=== PATIENT | female | born 1980 | race Caucasian/White ===

== ENCOUNTER 2017-11-15 16:15 | Emergency (ER) | payer BC ==
[2017-11-15 16:57] LABS: ABS Basophils 0.1 10^3/ul (0-0.2); ABS Eosinophils 0.2 10^3/ul (0-0.6); ABS Lymphocytes 2.5 10^3/ul (1.0-4.8); ABS Monocytes 0.4 10^3/ul (0-0.8); ABS Neutrophils 3.4 10^3/ul (1.5-7.7); ABS Nucleated RBC 0 10^3/ul; Eosinophil % 2.5 % (0-6); Hematocrit 38 % (35-47); Hemoglobin 12.7 g/dl (12.0-16.0); Lymphocyte % 38.6 % (25-47); Mean Corpuscular HGB Conc 34 g/dl (31-36); Mean Corpuscular Hemoglobin 32 pg (27-31); Mean Corpuscular Volume 94 fL (80-97); Mean Platelet Volume 7.8 um3 (7.4-10.4); Nucleated Red Blood Cells % 0.1; Platelet Count 218 10^3/ul (150-450); Red Blood Count 4.01 10^6/ul (4.00-5.40); Red Cell Distribution Width 13 % (10.5-15); White Blood Count 6.4 10^3/ul (3.5-10.8)
[2017-11-15 17:22] LABS: EGFR Non-African American 84.7 (>60)
--- NOTE | 2017-11-15 18:08 | RAD ---
INDICATION: Chest pain. COMPARISON: Comparison is made with a prior chest x-ray study from November 15, 2008. TECHNIQUE: A portable view of the chest was obtained. FINDINGS: Cardiac and mediastinal contours appear to be within normal limits. The lungs are clear. No pleural effusion is seen. IMPRESSION: NO EVIDENCE FOR ACUTE DISEASE.
[2017-11-15] MEDS ORDERED: Aspirin TAB* 325 MG PO ONE (18:13)
[2017-11-15] MEDS ORDERED: Aspirin 81 mg CHEW TAB* 81 MG TAB.CHEW ONE (18:21)
--- NOTE | 2017-11-15 21:03 | ED ---
HPI Chest Pain - HPI Summary HPI Summary: Patient complains of left jaw pain, left neck and shoulder pain, numbness and tingling in left arm 1 week, with some intermittent left chest discomfort starting today. Patient states she had fillings placed in left side of her jaw 2 weeks ago with some residual left jaw pain. CP described as fluttery, intermittent, lasting a few minutes at a time, random onset, no history of same. Denies fever, SOB, trauma, cough, sore throat, N/V/D, abdominal pain, change in urine or BM. Medical history is none. Denies OCP, estrogen supplements, history of blood clots, recent surgery or trauma, family history of blood clots, history of cancer, unilateral leg pain, cardiac history. Family cardiac history unknown. Medical history is none. Nonsmoker, denies use of illegal stimulants, overuse of caffeine or energy drinks. - History of Current Complaint Chief Complaint: EDNeurologicalDeficit Time Seen by Provider: 11/15/17 17:32 Hx Obtained From: Patient Hx Last Menstrual Period: 01/18/14 Onset/Duration: Started Days Ago Timing: Intermittent Initial Severity: Moderate Current Severity: Moderate Pain Intensity: 6 Pain Scale Used: 0-10 Numeric Chest Pain Location: Discrete at:, Left Anterior Character: Fluttering Aggravating Factor(s): Nothing Alleviating Factor(s): Nothing Associated Signs and Symptoms: Positive: Chest Pain, Numbness, Tingling - Risk Factors Pulmonary Embolism Risk Factors: Negative - Allergy/Home Medications Allergies/Adverse Reactions: Allergies Allergy/AdvReac Type Severity Reaction Status Date / Time Sulfa (Sulfonamide Allergy Rash Verified 11/15/17 16:23 Antibiotics) PMH/Surg Hx/FS Hx/Imm Hx Endocrine/Hematology History: Denies: Hx Anticoagulant Therapy, Hx Diabetes, Hx Thyroid Disease Cardiovascular History: Denies: Hx Hypertension Respiratory History: Denies: Hx Asthma, Hx Chronic Obstructive Pulmonary Disease (COPD) GI History: Denies: Hx Ulcer History: Denies: Hx Dialysis Neurological History: Denies: Hx CVA - Surgical History Surgery Procedure, Year, and Place: wisdom teeth extraction Infectious Disease History: No Infectious Disease History: Denies: Hx Hepatitis, Hx Human Immunodeficiency Virus (HIV), Traveled Outside the [place] in Last 30 Days - Social History Alcohol Use: Occasionally Substance Use Type: Reports: Marijuana Smoking Status (MU): Never Smoked Tobacco Review of Systems Constitutional: Negative Eyes: Negative ENT: Negative Positive: Chest Pain Respiratory: Negative Gastrointestinal: Negative Genitourinary: Negative Musculoskeletal: Other Skin: Negative Neurological: Negative Psychological: Normal All Other Systems Reviewed And Are Negative: Yes Physical Exam - Summary Physical Exam Summary: Chest nontender to palpation. Neuro exam normal, chrome cleaner strength equal bilaterally. Patient able to adduct and abduct left arm and shoulder. No erythema or warmth to left upper extremity/. No erythema to left mastoid. Full range of motion of jaw. Full range of motion of neck. Tenderness to palpation along paraspinal muscles of C-spine and left trapezius. No tenderness with palpation of left shoulder or left arm. No pedal edema, unilateral leg pain or swelling Triage Information Reviewed: Yes Vital Signs On Initial Exam: Initial Vitals Temp Pulse Resp BP Pulse Ox 98.8 F 111 17 124/81 100 11/15/17 16:19 11/15/17 16:19 11/15/17 16:19 11/15/17 16:19 11/15/17 16:19 Vital Signs Reviewed: Yes Appearance: Positive: Well-Appearing Skin: Positive: Warm Head/Face: Positive: Normal Head/Face Inspection Eyes: Positive: Normal ENT: Positive: Normal ENT inspection Neck: Positive: Supple Respiratory/Lung Sounds: Positive: Clear to Auscultation Cardiovascular: Positive: Normal Abdomen Description: Positive: Nontender Musculoskeletal: Positive: Normal Neurological: Positive: Normal Psychiatric: Positive: Normal AVPU Assessment: Alert - [place] Coma Scale Best Eye Response: 4 - Spontaneous Best Motor Response: 6 - Obeys Commands Best Verbal Response: 5 - Oriented Coma Scale Total: 15 Diagnostics - Vital Signs Vital Signs Temp Pulse Resp BP Pulse Ox 11/15/17 20:05 80 16 106/78 100 11/15/17 20:00 75 34 99 11/15/17 19:35 74 16 108/76 99 11/15/17 19:05 78 19 114/79 99 11/15/17 19:00 73 25 100 11/15/17 18:35 77 22 119/84 99 11/15/17 18:05 74 19 112/81 98 11/15/17 18:00 19 11/15/17 17:35 76 12 110/92 100 11/15/17 16:19 98.8 F 111 17 124/81 100 - Laboratory Lab Results: Lab Results 11/15/17 11/15/17 11/15/17 Range/Units 16:47 16:47 16:49 WBC 6.4 (3.5-10.8) 10^3/ul RBC 4.01 (4.00-5.40) 10^6/ul Hgb 12.7 (12.0-16.0) g/dl Hct 38 (35-47) % MCV 94 (80-97) fL MCH 32 H (27-31) pg MCHC 34 (31-36) g/dl RDW 13 (10.5-15) % Plt Count 218 (150-450) 10^3/ul MPV 7.8 (7.4-10.4) um3 Neut % (Auto) 52.2 (38-83) % Lymph % (Auto) 38.6 (25-47) % [place] % (Auto) 5.9 (0-7) % Eos % (Auto) 2.5 (0-6) % Baso % (Auto) 0.8 (0-2) % Absolute Neuts (auto) 3.4 (1.5-7.7) 10^3/ul Absolute Lymphs (auto) 2.5 (1.0-4.8) 10^3/ul Absolute Monos (auto) 0.4 (0-0.8) 10^3/ul Absolute Eos (auto) 0.2 (0-0.6) 10^3/ul Absolute Basos (auto) 0.1 (0-0.2) 10^3/ul Absolute Nucleated RBC 0 10^3/ul Nucleated RBC % 0.1 D-Dimer, Quantitative (Less Than 230) ng/mL Sodium 140 (135-145) mmol/L Potassium 3.6 (3.5-5.0) mmol/L Chloride 107 (101-111) mmol/L Carbon Dioxide 28 (22-32) mmol/L Anion Gap 5 (2-11) mmol/L BUN 12 (6-24) mg/dL Creatinine 0.76 (0.51-0.95) mg/dL Est GFR ( Amer) 102.5 (>60) Est GFR (Non-Af Amer) 84.7 (>60) BUN/Creatinine Ratio 15.8 (8-20) Glucose 148 H (70-100) mg/dL Lactic Acid 0.7 (0.5-2.0) mmol/L Calcium 8.9 (8.6-10.3) mg/dL Total Bilirubin 0.30 (0.2-1.0) mg/dL AST 15 (13-39) U/L ALT 15 (7-52) U/L Alkaline Phosphatase 46 (34-104) U/L Troponin I 0.00 (<0.04) ng/mL C-Reactive Protein < 1.00 (<8.01) mg/L Total Protein 6.6 (6.4-8.9) g/dL Albumin 4.2 (3.2-5.2) g/dL Globulin 2.4 (2-4) g/dL Albumin/Globulin Ratio 1.8 (1-3) 11/15/17 11/15/17 Range/Units 16:49 20:20 WBC (3.5-10.8) 10^3/ul RBC (4.00-5.40) 10^6/ul Hgb (12.0-16.0) g/dl Hct (35-47) % MCV (80-97) fL MCH (27-31) pg MCHC (31-36) g/dl RDW (10.5-15) % Plt Count (150-450) 10^3/ul MPV (7.4-10.4) um3 Neut % (Auto) (38-83) % Lymph % (Auto) (25-47) % [place] % (Auto) (0-7) % Eos % (Auto) (0-6) % Baso % (Auto) (0-2) % Absolute Neuts (auto) (1.5-7.7) 10^3/ul Absolute Lymphs (auto) (1.0-4.8) 10^3/ul Absolute Monos (auto) (0-0.8) 10^3/ul Absolute Eos (auto) (0-0.6) 10^3/ul Absolute Basos (auto) (0-0.2) 10^3/ul Absolute Nucleated RBC 10^3/ul Nucleated RBC % D-Dimer, Quantitative < 200 (Less Than 230) ng/mL Sodium (135-145) mmol/L Potassium (3.5-5.0) mmol/L Chloride (101-111) mmol/L Carbon Dioxide (22-32) mmol/L Anion Gap (2-11) mmol/L BUN (6-24) mg/dL Creatinine (0.51-0.95) mg/dL Est GFR ( Amer) (>60) Est GFR (Non-Af Amer) (>60) BUN/Creatinine Ratio (8-20) Glucose (70-100) mg/dL Lactic Acid (0.5-2.0) mmol/L Calcium (8.6-10.3) mg/dL Total Bilirubin (0.2-1.0) mg/dL AST (13-39) U/L ALT (7-52) U/L Alkaline Phosphatase (34-104) U/L Troponin I 0.00 (<0.04) ng/mL C-Reactive Protein (<8.01) mg/L Total Protein (6.4-8.9) g/dL Albumin (3.2-5.2) g/dL Globulin (2-4) g/dL Albumin/Globulin Ratio (1-3) Result Diagrams: 11/15/17 16:47 11/15/17 16:47 Lab Statement: Any lab studies that have been ordered have been reviewed, and results considered in the medical decision making process. - Radiology cxr Xray Interpretation: No Acute Changes Radiology Interpretation Completed By: Radiologist - EKG 1 Cardiac Rate: NL EKG Rhythm: Sinus Rhythm ST Segment: Non-Specific Ectopy: None Chest Pain Course/Dx - Course Course Of Treatment: Patient complains of left jaw pain, left neck and shoulder pain, numbness and tingling in left arm 1 week, with some intermittent left chest discomfort starting today. Patient states she had fillings placed in left side of her jaw 2 weeks ago with some residual left jaw pain. CP described as fluttery, intermittent, lasting a few minutes at a time, random onset, no history of same. Denies fever, SOB, trauma, cough, sore throat, N/V/D, abdominal pain, change in urine or BM. Medical history is none. Denies OCP, estrogen supplements, history of blood clots, recent surgery or trauma, family history of blood clots, history of cancer, unilateral leg pain, cardiac history. Family cardiac history unknown. Medical history is none. Nonsmoker, denies use of illegal stimulants, overuse of caffeine or energy drinks. Chest nontender to palpation. Neuro exam normal, chrome cleaner strength equal bilaterally. Patient able to adduct and abduct left arm and shoulder. No erythema or warmth to left upper extremity/. No erythema to left mastoid. Full range of motion of jaw. Full range of motion of neck. Tenderness to palpation along paraspinal muscles of C-spine and left trapezius. No tenderness with palpation of left shoulder or left arm. Vital signs within normal limits and stable. Troponins, labs, imaging, d-dimer unremarkable. Heart score 0. Atypical chest pain. Jaw pain related to dental work. Radiculopathy/muscle spasm left side neck and shoulder. Neuro exam normal. Rx for Flexeril and prednisone. Follow- up with primary care - Diagnoses Provider Diagnoses: Atypical chest pain, Muscle spasm Discharge - Sign-Out/Discharge Documenting (check all that apply): Patient Departure - Discharge Plan Condition: Stable Disposition: HOME Prescriptions: Cyclobenzaprine TAB* [Flexeril 10 MG TAB*] 10 mg PO TID PRN 3 Days #10 tab PRN Reason: Pain predniSONE TAB* [Deltasone 20 MG TAB*] 40 mg PO DAILY 5 Days #5 tab Patient Education Materials: Chest Pain (ED), Muscle Spasm (ED), Chest Wall Pain (ED) Referrals: Melanie Justice MD [Primary Care Provider] - Additional Instructions: Follow-up with primary care. Return to the ED for any new or worsening symptoms - Billing Disposition and Condition Condition: STABLE Disposition: Home
[2017-11-15 21:14] VITALS: BP 118/83
== END 2017-11-15 21:16 | disposition home or self-care (01) ==
LOC: ED 16:15
DX: R07.89 Other chest pain (principal); M62.838 Other muscle spasm; Z88.2 Allergy status to sulfonamides
CPT/HCPCS: 36415; 71045; 80053; 83605; 84484; 85025; 85379; 86140; 93005; 99283; A9270-GY

== ENCOUNTER 2020-05-20 22:00 | Inpatient (IN) ==
[2020-05-20] MEDS ORDERED: Morphine 4 MG/ML VIAL (1 ml) IV ONE (23:05)
[2020-05-20] MEDS ORDERED: NS 0.9% 1000 ml BAG 2,000 ML IV ONE (23:05)
[2020-05-20] MEDS ORDERED: Morphine 4 MG/ML VIAL (1 ml) IV PRN (23:05)
[2020-05-20 23:32] LABS: ABS Lymphocytes 1.1 10^3/ul (1.0-4.8); ABS Monocytes 0.7 10^3/ul (0-0.8); ABS Neutrophils 10.9 10^3/ul (1.5-7.7); Eosinophil % 0.2 %; Hematocrit 41 % (35-47); Hemoglobin 14.2 g/dL (12.0-16.0); Lymphocyte % 8.8 %; Mean Corpuscular HGB Conc 35 g/dL (31-36); Mean Corpuscular Hemoglobin 33 pg (27-31); Mean Corpuscular Volume 93 fL (80-97); Mean Platelet Volume 7.5 fL (7.4-10.4); Platelet Count 208 10^3/uL (150-450); Red Blood Count 4.38 10^6 /uL (3.70-4.87); Red Cell Distribution Width 13 % (10-15); White Blood Count 12.8 10^3/uL (3.5-10.8)
[2020-05-20 23:50] LABS: Albumin 3.8 g/dL (3.2-5.2); Albumin/Globulin Ratio 1.3 (1-3); BUN/Creatinine Ratio 14.5 (8-20); C Reactive Protein 159.06 mg/L (<8.01); Calcium 8.9 mg/dL (8.6-10.3); EGFR African American 112.9 (>60); EGFR Non-African American 93.3 (>60); Globulin 2.9 g/dL (2-4); Potassium 3.6 mmol/L (3.5-5.0); Total Bilirubin 0.8 mg/dL (0.2-1.0); Total Protein 6.7 g/dL (6.4-8.9)
[2020-05-21] MEDS ORDERED: metroNIDAZOLE IV 500 MG/100ML 500 MG/100 ML BAG ONE (00:36)
[2020-05-21] MEDS ORDERED: metroNIDAZOLE IV 500 MG/100ML 500 MG/100 ML BAG IVPB SCH ×2 (01:00)
[2020-05-21] MEDS: cefTRIAXone 1 gm/50 mL NS BAG 1 GM/50 ML BAG IVPB SCH ×2 (01:30→21:45)
[2020-05-21 04:01] LABS: Erythrocyte Sed Rate 35 mm/Hr (0-19)
[2020-05-21 05:45] LABS: Urine Appearance Cloudy; Urine Color Yellow
[2020-05-21 05:47] LABS: Urine Ketones 3+ (Negative); Urine Protein Negative (Negative); Urine Urobilinogen Negative (Negative)
[2020-05-21 05:48] LABS: Urine Blood 1+ (Negative); Urine Nitrite Negative (Negative)
[2020-05-21 05:49] LABS: Urine Bilirubin Negative (Negative); Urine Glucose Negative (Negative); Urine White Blood Cell Trace(0-5/hpf) (Absent)
[2020-05-21 05:50] LABS: Urine Red Blood Cell 1+(3-5/hpf) (Absent)
[2020-05-21] MEDS: HYDROmorphone 1 MG/1 ML SYRINGE IV PRN ×4 (06:52→21:37)
[2020-05-21] MEDS ORDERED: D5NS 0.9% 1000 ml BAG 1,000 ML IV SCH (07:00)
[2020-05-21] MEDS: metroNIDAZOLE IV 500 MG/100ML 500 MG/100 ML BAG IVPB SCH ×3 (07:53→22:36)
[2020-05-21] MEDS: Ondansetron 4 mg VIAL 2 MG/ML 2 ml VIAL IV PRN ×3 (08:58→21:37)
[2020-05-21] MEDS ORDERED: Gadoteridol (CONTRAST) 279.3 MG/ML 10 ML IV ONE (14:38)
[2020-05-21] MEDS ORDERED: Ondansetron 4 mg VIAL 2 MG/ML 2 ml VIAL IV ONE (17:37)
[2020-05-21 17:48] LABS: Hematocrit 36 % (35-47); Hemoglobin 12.4 g/dL (12.0-16.0); Mean Corpuscular HGB Conc 35 g/dL (31-36); Mean Corpuscular Hemoglobin 33 pg (27-31); Mean Corpuscular Volume 95 fL (80-97); Mean Platelet Volume 8.1 fL (7.4-10.4); Platelet Count 192 10^3/uL (150-450); Red Blood Count 3.77 10^6 /uL (3.70-4.87); Red Cell Distribution Width 13 % (10-15); White Blood Count 12.7 10^3/uL (3.5-10.8)
[2020-05-21 17:52] LABS: INR 1.22 (0.82-1.09)
[2020-05-21 17:57] LABS: Albumin 3.5 g/dL (3.2-5.2); Albumin/Globulin Ratio 1.3 (1-3); Calcium 8.1 mg/dL (8.6-10.3); EGFR African American 130.1 (>60); EGFR Non-African American 107.6 (>60); Globulin 2.7 g/dL (2-4); Potassium 3.7 mmol/L (3.5-5.0); Total Bilirubin 0.4 mg/dL (0.2-1.0); Total Protein 6.2 g/dL (6.4-8.9)
[2020-05-21] MEDS: NS 0.9% 1000 ml BAG 1,000 ML IV SCH (18:12)
[2020-05-22] MEDS: Ondansetron 4 mg VIAL 2 MG/ML 2 ml VIAL IV PRN ×3 (02:40→17:17)
[2020-05-22] MEDS: HYDROmorphone 1 MG/1 ML SYRINGE IV PRN ×2 (02:49→06:47)
[2020-05-22 04:55] LABS: Hematocrit 34 % (35-47); Hemoglobin 11.6 g/dL (12.0-16.0); Mean Corpuscular HGB Conc 34 g/dL (31-36); Mean Corpuscular Hemoglobin 32 pg (27-31); Mean Corpuscular Volume 95 fL (80-97); Mean Platelet Volume 7.7 fL (7.4-10.4); Platelet Count 182 10^3/uL (150-450); Red Blood Count 3.59 10^6 /uL (3.70-4.87); Red Cell Distribution Width 13 % (10-15); White Blood Count 8.3 10^3/uL (3.5-10.8)
[2020-05-22 05:12] LABS: ALT 9 U/L (7-52); AST 10 U/L (13-39); Albumin 3.2 g/dL (3.2-5.2); Albumin/Globulin Ratio 1.3 (1-3); Alkaline Phosphatase 46 U/L (34-104); Anion Gap 6 mmol/L (2-11); Blood Urea Nitrogen 14 mg/dL (6-24); CO2 Carbon Dioxide 24 mmol/L (22-32); Calcium 8.4 mg/dL (8.6-10.3); Chloride 107 mmol/L (101-111); EGFR African American 130.1 (>60); EGFR Non-African American 107.6 (>60); Globulin 2.5 g/dL (2-4); Glucose 81 mg/dL (70-100); Magnesium 1.9 mg/dL (1.9-2.7); Potassium 3.9 mmol/L (3.5-5.0); Sodium 137 mmol/L (135-145); Total Protein 5.7 g/dL (6.4-8.9)
[2020-05-22] MEDS: metroNIDAZOLE IV 500 MG/100ML 500 MG/100 ML BAG IVPB SCH ×3 (06:40→22:12)
[2020-05-22] MEDS ORDERED: HYDROmorphone 0.5 MG/0.5 ML SYRINGE IV PRN (08:06)
[2020-05-22] MEDS: NS 0.9% 1000 ml BAG 1,000 ML IV SCH (10:17)
[2020-05-22] MEDS ORDERED: Polyethylene Glycol 3350 17 GM PACKET PO PRN (11:29)
[2020-05-22] MEDS ORDERED: Polyethylene Glycol 3350 17 GM PACKET PO ONE (11:33)
[2020-05-22 12:15] LABS: HCG Pregnancy < 0.60 mIU/mL
[2020-05-22] MEDS: cefTRIAXone 1 gm/50 mL NS BAG 1 GM/50 ML BAG IVPB SCH (21:24)
[2020-05-22] MEDS ORDERED: Prochlorperazine 5 mg/ml 2 ml VIAL (10 mg) IV ONE (22:16)
[2020-05-23] MEDS: NS 0.9% 1000 ml BAG 1,000 ML IV SCH (01:17)
[2020-05-23] MEDS: metroNIDAZOLE IV 500 MG/100ML 500 MG/100 ML BAG IVPB SCH (06:23)
[2020-05-23] MEDS: Ondansetron 4 mg VIAL 2 MG/ML 2 ml VIAL IV PRN (06:31)
[2020-05-23 06:41] LABS: Hematocrit 33 % (35-47); Hemoglobin 11.7 g/dL (12.0-16.0); Mean Corpuscular HGB Conc 35 g/dL (31-36); Mean Corpuscular Hemoglobin 33 pg (27-31); Mean Corpuscular Volume 93 fL (80-97); Mean Platelet Volume 7.7 fL (7.4-10.4); Platelet Count 233 10^3/uL (150-450); Red Cell Distribution Width 13 % (10-15); White Blood Count 6.2 10^3/uL (3.5-10.8)
[2020-05-23 06:52] LABS: BUN/Creatinine Ratio 16.1 (8-20); Calcium 8.1 mg/dL (8.6-10.3); EGFR African American 127.7 (>60); EGFR Non-African American 105.6 (>60); Potassium 3.3 mmol/L (3.5-5.0)
[2020-05-23 07:55] VITALS: BP 111/70
== END 2020-05-23 11:00 | disposition home or self-care (01) | DRG 249 ==
LOC: ED 22:00 → MEDTELE 05-21 00:10
PROVIDERS: ADMIT Internal Medicine; ATTEND Internal Medicine